=== PATIENT | male | born 1945 | race Caucasian/White ===

== ENCOUNTER → 2023-04-26 | Outpatient (CLI) | payer MEDICARE | END | disposition home or self-care (01) | LOC: RAH 11:28 → EDBD 11:30 | PROVIDERS: ATTEND Internal Medicine Critical Care Medicine | DX: N28.1 Cyst of kidney, acquired (principal); K57.90 Diverticulosis of intestine, part unspecified, without perforation or abscess without bleeding; K80.20 Calculus of gallbladder without cholecystitis without obstruction; M47.815 Spondylosis without myelopathy or radiculopathy, thoracolumbar region; K76.0 Fatty (change of) liver, not elsewhere classified; K44.9 Diaphragmatic hernia without obstruction or gangrene; R10.32 Left lower quadrant pain | CPT/HCPCS: 74176 ==

== ENCOUNTER → 2024-05-30 | Outpatient (CLI) | payer MEDICARE ==
--- NOTE | 2024-05-30 15:42 | HMCIMG ---
HIP UNILAT 2-3VW RIGHT REASON: PAIN IN RIGHT HIP COMPARISON: None TECHNIQUE: AP pelvis and right hip, 3 views FINDINGS: Bones of the pelvis appear normal. There are no fractures. Sacroiliac joints are unremarkable. Hip joint spaces appear preserved. Proximal right femur appears unremarkable as well, no evidence of fracture. IMPRESSION: 1. Normal views of the pelvis and right hip.
--- NOTE | 2024-05-30 15:47 | HMCIMG ---
HIP UNILAT 2-3VW LEFT REASON: PAIN IN LEFT HIP TECHNIQUE: 2 views were obtained. FINDINGS: There is no evidence of fracture or dislocation. There is no joint effusion. The soft tissues appear unremarkable. There is no evidence of a radiopaque foreign body. IMPRESSION: No acute findings.
== END | disposition home or self-care (01) ==
LOC: RAH 13:58
PROVIDERS: ATTEND Family Medicine
DX: M25.551 Pain in right hip (principal); M25.552 Pain in left hip
CPT/HCPCS: 73502